=== PATIENT | female | born 1990 | race Caucasian/White ===

== ENCOUNTER 2016-05-08 19:37 | Emergency (ER) | payer MEDICAID, OTHER ==
[2016-05-08 19:42] VITALS: RESP 16
[2016-05-08] MEDS ORDERED: SODIUM CHLORIDE 0.9% 1,000 ML IV STA (20:05)
[2016-05-08] MEDS ORDERED: HYDROmorphone 1 MG/ML 1 ML SYRINGE IVP STA (20:05)
[2016-05-08 20:29] LABS: Basophils # (A) 0.1 k/uL (0-0.2); Basophils % (A) 1 %; CH 29.6; CHCM 34.1; Eosinophils # (A) 0.2 k/uL (0-0.7); Eosinophils % (A) 3 %; HCT 43.4 % (34.0-46.0); HDW 2.39; HGB 14.3 gm/dL (11.4-16.0); Luc # (Auto) 0.21; Luc % (Auto) 2; Lymphocytes # (A) 2.9 k/uL (1.0-4.8); Lymphocytes % (A) 32 %; MCH 28.6 pg (25.0-35.0); MCHC 32.9 g/dL (31.0-37.0); MCV 87.2 fL (80.0-100.0); Mean Platelet Volume 7.6; Monocytes # (A) 0.4 k/uL (0-1.0); Monocytes % (A) 4 %; Neutrophils # (A) 5.4 k/uL (1.3-7.7); Neutrophils % (A) 58 %; RBC 4.98 m/uL (3.80-5.40); RDW 12.1 % (11.5-15.5); WBC 9.2 k/uL (3.8-10.6); WBC (Perox) 9.19
[2016-05-08 20:30] LABS: Appearance,Urine Clear (Clear); Bilirubin,Urine Negative (Negative); Glucose,Urine (UA) Negative (Negative); Ketones,Urine Negative (Negative); Leukocyte Esterase,Urine Negative (Negative); Nitrite,Urine Negative (Negative); Protein,Urine Negative (Negative); Specific Gravity,Urine 1.007 (1.001-1.035); UA Billing (MACRO vs. MICRO) CHEM; Urobilinogen,Urine <2.0 mg/dL (<2.0)
--- NOTE | 2016-05-08 20:43 | XR ---
EXAMINATION TYPE: XR KUB DATE OF EXAM: 05/08/2016 8:39 PM CLINICAL HISTORY: Abdominal pain with nausea vomiting and diarrhea today TECHNIQUE: 2 upright KUB images of the abdomen are obtained. COMPARISON: Abdominal x-ray and CT abdomen pelvis February 19, 2014 FINDINGS: Scattered gas is seen in non-distended stomach and small bowel loops. Gas and fecal mater ial is seen in non-distended colon. There is no visceromegaly, pneumoperitoneum, or abnormal calcif ication appreciated. The lung bases are clear and the osseous structures are intact. IMPRESSION: Overall nonobstructive bowel gas pattern.
[2016-05-08 20:46] LABS: ALT 30 U/L (9-52); AST 30 U/L (14-36); Alkaline Phosphatase 59 U/L (38-126); Amylase 66 U/L (30-110); Anion Gap 10 mmol/L; Blood Urea Nitrogen 11 mg/dL (7-17); Calcium 9.8 mg/dL (8.4-10.2); Carbon Dioxide 29 mmol/L (22-30); Chloride 103 mmol/L (98-107); Glucose 83 mg/dL (74-99); Non-African American GFR(MDRD) >60 (>60 ml/min/1.73 sqM); Potassium 4.1 mmol/L (3.5-5.1); Sodium 142 mmol/L (137-145); Total Bilirubin 0.5 mg/dL (0.2-1.3); Total Protein 8.4 g/dL (6.3-8.2)
--- NOTE | 2016-05-08 20:56 | ED ---
Abdominal Pain HPI - General Chief Complaint: Abdominal Pain Stated Complaint: Abdominal Pain/NVD Time Seen by Provider: 05/08/16 19:45 Source: patient, RN notes reviewed Mode of arrival: ambulatory Limitations: no limitations - History of Present Illness Initial Comments: Patient is a 25-year-old female with history of cold ulcerative colitis presenting to the emergency department with chief complaint of lower abdominal pain, diarrhea and one episode of vomiting for approximately 2 days. She reports that anytime she eats she gets a severe abdominal pain. She reports that she's had no problems with urination. She states that she does not take any medications to manage her ulcerative colitis and she has not had a flare in many years. Patient reports she's noticed no blood in her stools. She states that she has worsening pain when laying down on her abdomen or any pressure is applied for abdomen. She was seen at urgent care and they instructed her to come to the emergency department. She states that at the urgent care they did do a urine analysis. She states she's had no fever or chills, headache, chest pain, shortness of breath. - Related Data Home Medications Medication Instructions Recorded Confirmed Nkyeske-Zjyt-Koip [id number] 2 tab PO QID PRN 05/08/16 05/08/16 [Excedrin] Previous Rx's Medication Instructions Recorded Acetaminophen-Codeine 300-30mg 1 tab PO Q4H PRN #12 tablet 05/08/16 [Tylenol #3] Bismuth Subsalicylate 5 ml PO TID #1 bottle 05/08/16 [Pepto-Bismol] predniSONE 50 mg PO DAILY #5 tab 05/08/16 Allergies Allergy/AdvReac Type Severity Reaction Status Date / Time No Known Allergies Allergy Verified 05/08/16 19:48 Review of Systems ROS Statement: Those systems with pertinent positive or pertinent negative responses have been documented in the HPI. ROS Other: All systems not noted in ROS Statement are negative. Past Medical History Additional Past Medical History / Comment(s): UTIs, back pain, colitis History of Any Multi-Drug Resistant Organisms: None Reported Past Surgical History: No Surgical Hx Reported Past Psychological History: No Psychological Hx Reported Smoking Status: Never smoker Past Alcohol Use History: Occasional Past Drug Use History: None Reported General Exam - General Exam Comments Initial Comments: is a pleasant 25-year-old female. She does not appear to be in any acute distress. Limitations: no limitations General appearance: alert Head exam: Present: atraumatic, normocephalic, normal inspection Eye exam: Present: normal appearance, PERRL, EOMI. Absent: scleral icterus, conjunctival injection, periorbital swelling ENT exam: Present: normal exam, mucous membranes moist Neck exam: Present: normal inspection. Absent: tenderness, meningismus, lymphadenopathy Respiratory exam: Present: normal lung sounds bilaterally. Absent: respiratory distress, wheezes, rales, rhonchi, stridor Cardiovascular Exam: Present: regular rate, normal rhythm, normal heart sounds. Absent: systolic murmur, diastolic murmur, rubs, gallop, clicks GI/Abdominal exam: Present: soft, tenderness (Patient has significant left lower quadrant and right lower quadrant tenderness.), normal bowel sounds. Absent: distended, guarding, rebound, rigid Rectal exam: Present: normal inspection, normal rectal tone Extremities exam: Present: normal inspection, full ROM, normal capillary refill. Absent: tenderness, pedal edema, joint swelling, calf tenderness Back exam: Present: normal inspection Neurological exam: Present: alert, oriented X3, CN II-XII intact Psychiatric exam: Present: normal affect, normal mood Skin exam: Present: warm, dry, intact, normal color. Absent: rash Course Vital Signs 05/08/16 05/08/16 05/09/16 19:40 21:42 00:20 Temperature 98.9 F 97.9 F Pulse Rate 80 77 68 Respiratory 16 16 16 Rate Blood Pressure 130/72 111/59 122/76 O2 Sat by Pulse 99 100 98 Oximetry Medical Decision Making - Medical Decision Making Patient is a 25-year-old female with history of cold ulcerative colitis presenting to the emergency department with chief complaint of lower abdominal pain, diarrhea and one episode of vomiting for approximately 2 days. She reports that anytime she eats she gets a severe abdominal pain. She reports that she's had no problems with urination. She states that she does not take any medications to manage her ulcerative colitis and she has not had a flare in many years. Patient reports she's noticed no blood in her stools. She states that she has worsening pain when laying down on her abdomen or any pressure is applied for abdomen. She was seen at urgent care and they instructed her to come to the emergency department. Labs were reviewed and are negative for any acute process. Given history of UC, and her tenderness CT abdomen and pelvis with contrast obtained. Evidence of possible rupture ovarian cyst on the left. Patient will be given pain medicaion, steroids for mild colitis exacerbation. Patient also advised to take peptobismol. Patient given PCP information and advised to follow up in one to two days. - Lab Data Result diagrams: 05/08/16 20:22 05/08/16 20:22 Lab Results 05/08/16 05/08/16 05/08/16 Range/Units 20:22 20:22 20:22 WBC 9.2 (3.8-10.6) k/uL RBC 4.98 (3.80-5.40) m/uL Hgb 14.3 (11.4-16.0) gm/dL Hct 43.4 (34.0-46.0) % MCV 87.2 (80.0-100.0) fL MCH 28.6 (25.0-35.0) pg MCHC 32.9 (31.0-37.0) g/dL RDW 12.1 (11.5-15.5) % Plt Count 281 (150-450) k/uL Neutrophils % 58 % Lymphocytes % 32 % Monocytes % 4 % Eosinophils % 3 % Basophils % 1 % Neutrophils # 5.4 (1.3-7.7) k/uL Lymphocytes # 2.9 (1.0-4.8) k/uL Monocytes # 0.4 (0-1.0) k/uL Eosinophils # 0.2 (0-0.7) k/uL Basophils # 0.1 (0-0.2) k/uL Sodium 142 (137-145) mmol/L Potassium 4.1 (3.5-5.1) mmol/L Chloride 103 (98-107) mmol/L Carbon Dioxide 29 (22-30) mmol/L Anion Gap 10 mmol/L BUN 11 (7-17) mg/dL Creatinine 0.60 (0.52-1.04) mg/dL Est GFR (MDRD) Af Amer >60 (>60 ml/min/1.73 sqM) Est GFR (MDRD) Non-Af >60 (>60 ml/min/1.73 sqM) Glucose 83 (74-99) mg/dL Calcium 9.8 (8.4-10.2) mg/dL Total Bilirubin 0.5 (0.2-1.3) mg/dL AST 30 (14-36) U/L ALT 30 (9-52) U/L Alkaline Phosphatase 59 (38-126) U/L Total Protein 8.4 H (6.3-8.2) g/dL Albumin 4.7 (3.5-5.0) g/dL Amylase 66 (30-110) U/L Lipase 44 (23-300) U/L Urine Color Light Yellow Urine Appearance Clear (Clear) Urine pH 6.0 (5.0-8.0) Ur Specific [place] 1.007 (1.001-1.035) Urine Protein Negative (Negative) Urine Glucose (UA) Negative (Negative) Urine Ketones Negative (Negative) Urine Blood Negative (Negative) Urine Nitrate Negative (Negative) Urine Bilirubin Negative (Negative) Urine Urobilinogen <2.0 (<2.0) mg/dL Ur Leukocyte Esterase Negative (Negative) Urine HCG, Qual (Not Detectd) Stool Occult Blood (Negative) 05/08/16 05/08/16 Range/Units 20:22 20:56 WBC (3.8-10.6) k/uL RBC (3.80-5.40) m/uL Hgb (11.4-16.0) gm/dL Hct (34.0-46.0) % MCV (80.0-100.0) fL MCH (25.0-35.0) pg MCHC (31.0-37.0) g/dL RDW (11.5-15.5) % Plt Count (150-450) k/uL Neutrophils % % Lymphocytes % % Monocytes % % Eosinophils % % Basophils % % Neutrophils # (1.3-7.7) k/uL Lymphocytes # (1.0-4.8) k/uL Monocytes # (0-1.0) k/uL Eosinophils # (0-0.7) k/uL Basophils # (0-0.2) k/uL Sodium (137-145) mmol/L Potassium (3.5-5.1) mmol/L Chloride (98-107) mmol/L Carbon Dioxide (22-30) mmol/L Anion Gap mmol/L BUN (7-17) mg/dL Creatinine (0.52-1.04) mg/dL Est GFR (MDRD) Af Amer (>60 ml/min/1.73 sqM) Est GFR (MDRD) Non-Af (>60 ml/min/1.73 sqM) Glucose (74-99) mg/dL Calcium (8.4-10.2) mg/dL Total Bilirubin (0.2-1.3) mg/dL AST (14-36) U/L ALT (9-52) U/L Alkaline Phosphatase (38-126) U/L Total Protein (6.3-8.2) g/dL Albumin (3.5-5.0) g/dL Amylase (30-110) U/L Lipase (23-300) U/L Urine Color Urine Appearance (Clear) Urine pH (5.0-8.0) Ur Specific [place] (1.001-1.035) Urine Protein (Negative) Urine Glucose (UA) (Negative) Urine Ketones (Negative) Urine Blood (Negative) Urine Nitrate (Negative) Urine Bilirubin (Negative) Urine Urobilinogen (<2.0) mg/dL Ur Leukocyte Esterase (Negative) Urine HCG, Qual Not Detected (Not Detectd) Stool Occult Blood Negative (Negative) - Radiology Data Radiology results: report reviewed Left slightly larger than right ovarian cyst with trace amounts of fluid in the adjacent left adnexa. Perhaps basis of a partial cyst rupture. Follow-up ultrasound exam could be obtained within 6-8 weeks to reevaluate including to ensure clearing. Small stones in the right upper and mid kidney without secondary signs of urinary tract obstruction. Disposition Clinical Impression: Ovarian cyst, Diarrhea, History of ulcerative colitis Disposition: HOME SELF-CARE Condition: Good Instructions: Ovarian Cyst (ED), Gastroenteritis (ED) Additional Instructions: Patient advised to rest, remain hydrated and follow-up with primary care provider. Continue to complete the stair prescription and take Pepto-Bismol as directed. Patient also advised to use the pain medication for pain. Return to the emergency department if any alarming signs or symptoms occur. Prescriptions: Acetaminophen-Codeine 300-30mg [Tylenol #3] 1 tab PO Q4H PRN #12 tablet PRN Reason: Pain Bismuth Subsalicylate [Pepto-Bismol] 5 ml PO TID #1 bottle predniSONE 50 mg PO DAILY #5 tab Referrals: Maria Esther Bridges MD [STAFF PHYSICIAN] - 1-2 days Siria Camp MD [STAFF PHYSICIAN] - 1-2 days Time of Disposition: 23:39
[2016-05-08] MEDS: RX INFO: IV CONTRAST WAS GIVEN 1 EACH MISC MISCELLANE PRN ×2 (22:44→23:14)
--- NOTE | 2016-05-08 23:29 | CT ---
EXAM: CT Abdomen and Pelvis With Intravenous Contrast. CLINICAL HISTORY: Reason: pain TECHNIQUE: Axial computed tomography images of the abdomen and pelvis with intravenous contrast. CTDI is 34.80 mGy and DLP is 1378.90 mGy-cm COMPARISON: 02/19/[address] FINDINGS: Lower thorax: No acute findings. ABDOMEN: Liver: There is again generalized hepatic steatosis present. Gallbladder and bile ducts: Unremarkable. No calcified stones. No ductal dilation. Pancreas: Unremarkable. No ductal dilation. No mass. Spleen: Unremarkable. No splenomegaly. Adrenals: Unremarkable. No mass. Kidneys and ureters: 2 tiny stones, each on the order of 2-3 mm, are present in the right upper and mid kidney. The left kidney is uniform. No hydronephrosis, ureter stone or hydroureter. PELVIS: Bladder: Unremarkable. No mass. Reproductive: Both ovaries are mildly enlarged, each appears to contain a cyst within it is slightly larger on the left where it measures 3.6 x 2.8 cm, that on the right where it measures 3.4 x 2.0 cm. Appendix: No findings to suggest acute appendicitis. ABDOMEN + PELVIS: Stomach and bowel: Unremarkable. No obstruction. No mucosal thickening. Peritoneum: There is a trace amount of free fluid anterior to the left ovary. Lymph nodes: Unremarkable. No enlarged lymph nodes. Vasculature: Unremarkable. No aortic aneurysm. Bones: No acute fracture. IMPRESSION: 1. Left slightly larger than right ovarian cyst with trace amount of fluid in the adjacent left adnexa, perhaps on the basis of partial cyst rupture. Follow-up ultrasound exam could be obtained within 6-8 weeks to reevaluate including to ensure clearing. 2. Small stones in the right upper and mid kidney without secondary signs of urinary tract obstruction.
[2016-05-08] MEDS ORDERED: ACET/COD 300 MG/30 MG STARTER PACK 6 TAB BTL PO STA (23:57)
[2016-05-09 00:21] VITALS: BP 122/76; PULSE 68; TEMP 97.9
== END 2016-05-09 00:23 | disposition home or self-care (01) ==
LOC: EC 19:37
DX: N83.202 Unspecified ovarian cyst, left side (principal); N83.201 Unspecified ovarian cyst, right side; R19.7 Diarrhea, unspecified; Z87.19 Personal history of other diseases of the digestive system
CPT/HCPCS: 36415; 80053; 82150; 83690; 85025; 82272; 81003; 81025; 74000; 74177; 99284; 96374; 96361 ×4; J1170; Q9967

== ENCOUNTER → 2016-06-29 | Outpatient (CLI) | payer MEDICAID ==
--- NOTE | 2016-06-29 10:26 | US ---
EXAMINATION TYPE: US transvaginal DATE OF EXAM: 06/29/2016 8:40 AM COMPARISON: 02/25/2015 CLINICAL HISTORY: 25-year-old female with previous Ovarian Cyst N83.209. Date of LMP: 05/07/16 TECHNIQUE: Multiple transvaginal sonographic images of the pelvis were obtained. Findings: Uterus: Anteverted measuring 7.5 x 3.6 x 4.5 cm. Cervical nabothian cysts are present. Endometrial Stripe: 1.1 cm. There are a few tiny 3 mm cystic locules along the endometrium and in the adjacent junctional zone. Right Ovary: 4.1 x 2.3 x 2.5 cm for a volume of 12.3 mL. Left Ovary: 4.2 x 2.5 x 2.8 cm for a volume of 15.4 mL. There are numerous small peripheral follicles in both ovaries. No evident adnexal abnormality or cul-de-sac free fluid. IMPRESSION: 1. A few tiny cystic locules measuring 3 mm along the endometrium and possibly in the adjacent juncti onal zone. Findings could reflect impending menstruation. Correlate to ensure a negative st atus. Adenomyosis can sometimes demonstrate myometrial cysts. Clinically correlate. 2. Numerous small peripherally oriented follicles within the ovaries. Clinical correlation can be mad e to exclude polycystic ovaries.
[2016-06-29 11:37] LABS: Follicle Stimulating Hormone 4.8 mIU/mL; Prolactin 24.7 ng/mL (3.0-18.6)
[2016-06-29 15:08] LABS: DHEA Sulfate 186.5 ug/dL (26.0-430.0)
== END | disposition home or self-care (01) ==
LOC: RADUSWWP 08:16
PROVIDERS: ATTEND Obstetrics & Gynecology
DX: N85.8 Other specified noninflammatory disorders of uterus (principal); N91.2 Amenorrhea, unspecified
CPT/HCPCS: 36415; 76830; 80061; 82627; 82947; 83001; 83002; 83525; 84146; 84443

== ENCOUNTER 2016-07-04 09:24 | Day surgery (SDC) | payer MEDICAID ==
[~2016-07-04 09:24] MED LIST: LACTATED RINGERS 1,000 ML IV SCH
[2016-07-04 09:46] VITALS: RESP 16; TEMP 98.6
[2016-07-04] MEDS ORDERED: LIDOCAINE 1% 20 ML VIAL (10MG/ML) FOR IV START INTRADERMA ONE (09:55)
[2016-07-04] MEDS ORDERED: LIDOCAINE 1% INJ 10MG/ML (20 ML MDV) ONE (10:30)
[2016-07-04] MEDS ORDERED: PROPOFOL 10 MG/ML 20 ML VIAL IV ONE (10:30)
--- NOTE | 2016-07-04 11:03 | P.PCN ---
Date of Procedure: 07/04/16 Procedure(s) Performed: Procedures: 1. Esophagogastroduodenoscopy and biopsy. 2. Colonoscopy and biopsy. Preoperative diagnosis: Abdominal pain, nausea, vomiting and change in bowel habits.. Postoperative diagnosis: 1. Small sliding hiatal hernia with no obvious esophagitis or complicated reflux disease. 2. Mild antral gastritis. 3. Normal colon and terminal ileum. Preparation: HalfLytely prep. Sedation: Was provided by anesthesia. Brief clinical history: The patient is a 25-year-old female who was evaluated in the office last month for recurrent nausea and vomiting and abdominal pain for the last couple years and intermittent diarrhea for the last 5 years. The patient was on omeprazole and was told in the past that she had colitis. This evaluation is to assess for inflammatory bowel disease, peptic ulcer disease or other pathology. Procedure: With the patient on her left lateral decubitus position and after informed consent and adequate sedation, I passed the Olympus-GIF 160 video upper endoscope through the cricopharyngeus down the esophagus. GE junction was around 36 cm from the incisors and there was a small sliding hiatal hernia. The endoscope was then passed into the stomach which was insufflated with air and inspected in detail including the retroflex view in the cardia. Finally, the endoscope was passed through the pylorus into the duodenum. Pyloric channel did not show any ulcers. Duodenal bulb, post bulbar area and descending duodenum showed minimal erythema, otherwise, appeared essentially within normal limits. The antrum showed some mottling and erythema but there were no ulcers or erosions. The esophagus did not show any erosions, ulcers, strictures or Mccann's esophagus. I obtained biopsies from the duodenum, antrum and esophagus then the endoscope was withdrawn and I proceeded with the colonoscopy. Perianal area did not show any fissures or fistulas. There were no masses felt on digital rectal examination. The Olympus CFQ 160L video colonoscope was then inserted in the rectum in the usual fashion and advanced to the cecum. I intubated the ileocecal valve and examined the terminal ileum. Terminal ileum and colon appeared healthy with no edema, erythema, ulceration, exudation or spontaneous bleeding. No obvious diverticular disease or any polyps were seen. I obtained biopsies from the terminal ileum and right colon then I retroflexed endoscope in the rectum before the endoscope was withdrawn. The patient tolerated the procedure well. Plan: The patient was reassured. Will await pathology results. She will follow -up in the office later this month and would keep you updated on her progress. She will follow-up with you as planned.
[2016-07-04 11:25] VITALS: BP 118/75; PULSE 72
== END 2016-07-04 11:38 | disposition home or self-care (01) ==
LOC: ORWHC2ENDO 09:24
DX: K29.50 Unspecified chronic gastritis without bleeding (principal); R19.7 Diarrhea, unspecified; K21.0 Gastro-esophageal reflux disease with esophagitis; R11.2 Nausea with vomiting, unspecified; K44.9 Diaphragmatic hernia without obstruction or gangrene; Z79.899 Other long term (current) drug therapy
CPT/HCPCS: 81025; 88305; 88342; 45380; 43239; J2001; J2704

== ENCOUNTER → 2016-07-08 | Outpatient (CLI) | payer MEDICAID | END | disposition home or self-care (01) | LOC: LABWHC1 10:11 | PROVIDERS: ATTEND Obstetrics & Gynecology | DX: R94.6 Abnormal results of thyroid function studies (principal) | CPT/HCPCS: 36415; 84432; 84439; 84481; 86376 ==

== ENCOUNTER 2016-07-30 00:29 | Emergency (ER) | payer MEDICAID ==
[2016-07-30 00:39] VITALS: BP 143/78; PULSE 80; RESP 16; TEMP 98
--- NOTE | 2016-07-30 01:04 | ED ---
Lower Extremity Injury HPI - General Chief Complaint: Extremity Injury, Lower Stated Complaint: knee pain Time Seen by Provider: 07/30/16 00:40 Source: patient, RN notes reviewed Mode of arrival: ambulatory Limitations: no limitations - History of Present Illness Initial Comments: This is a pleasant 25-year-old female presents emergency department complaining of right leg. Patient states that she thought she was having a charley horse yesterday and felt pain behind her right knee and in the posterior/distal aspect of her right eye. She states that the area was sore throughout the day today. She states feeling had what she felt was another charley horse. She is complaining of some pain to the same area. 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 Patient denies any pain distal to the knee. She denies any hip pain. There is no foot pain. No numbness or tingling. Patient is able ambulate with increased pain. Patient does have a family history of DVT. Patient also started hormone pills about one month ago. Patient denies any shortness breath or chest pain. No chance of . Patient states she is on her menses currently. Patient denies any direct trauma. No fever or chills. No headache or dizziness. No change in vision or hearing. No nausea or vomiting. No change in bowel movements or urination. - Related Data Home Medications Medication Instructions Recorded Confirmed Omeprazole 40 mg PO QAM 07/01/16 07/04/16 Previous Rx's Medication Instructions Recorded Naproxen 375 mg PO BID PRN #20 tablet. 07/30/16 Allergies Allergy/AdvReac Type Severity Reaction Status Date / Time No Known Allergies Allergy Verified 07/04/16 09:47 Review of Systems ROS Statement: Those systems with pertinent positive or pertinent negative responses have been documented in the HPI. ROS Other: All systems not noted in ROS Statement are negative. Past Medical History Additional Past Medical History / Comment(s): UTIs, back pain, colitis History of Any Multi-Drug Resistant Organisms: None Reported Past Surgical History: No Surgical Hx Reported Past Psychological History: No Psychological Hx Reported Smoking Status: Never smoker Past Alcohol Use History: Occasional Past Drug Use History: None Reported General Exam - General Exam Comments Initial Comments: Well-developed, well-nourished 25-year-old female in no distress Limitations: no limitations General appearance: alert, in no apparent distress Head exam: Present: atraumatic, normocephalic, normal inspection Eye exam: Present: normal appearance, PERRL, EOMI. Absent: scleral icterus, conjunctival injection, periorbital swelling ENT exam: Present: normal exam, mucous membranes moist Neck exam: Present: normal inspection. Absent: tenderness, meningismus, lymphadenopathy Respiratory exam: Present: normal lung sounds bilaterally. Absent: respiratory distress, wheezes, rales, rhonchi, stridor Cardiovascular Exam: Present: regular rate, normal rhythm, normal heart sounds. Absent: systolic murmur, diastolic murmur, rubs, gallop, clicks GI/Abdominal exam: Present: soft, normal bowel sounds. Absent: distended, tenderness, guarding, rebound, rigid Extremities exam: Present: normal inspection, full ROM, tenderness (Patient has mild tenderness to the right popliteal space. However, there is no palpable cord, no evidence of erythema, no evidence of crepitus or deformity, no bruising or varicosity.), normal capillary refill. Absent: pedal edema, joint swelling, calf tenderness Back exam: Present: normal inspection Neurological exam: Present: alert, oriented X3, CN II-XII intact Psychiatric exam: Present: normal affect, normal mood Skin exam: Present: warm, dry, intact, normal color. Absent: rash Course Vital Signs 07/30/16 00:36 Temperature 98 F Pulse Rate 80 Respiratory 16 Rate Blood Pressure 143/78 O2 Sat by Pulse 99 Oximetry Medical Decision Making - Medical Decision Making Patient will be for whole-heartedly endorsed to Dr. Mireles for further evaluation and disposition. Case was discussed in detail with the accepting physician. Neg. doppler study. Pt. likely has muscle strain from muscle cramping. Disposition Clinical Impression: Muscle strain of right thigh Disposition: HOME SELF-CARE Condition: Good Instructions: Muscle Strain (ED) Additional Instructions: follow up with your PCP as directed. Return to the ED prn if worse. Prescriptions: Naproxen 375 mg PO BID PRN #20 tablet.dr LOVE Reason: Pain Referrals: Maria Esther Bridges MD [Primary Care Provider] - 1-2 days Time of Disposition: 01:24
--- NOTE | 2016-07-30 01:16 | US ---
EXAM: US Duplex Right Lower Extremity Veins CLINICAL HISTORY: Right knee pain. TECHNIQUE: Real-time ultrasound scan of the veins of the right lower extremity with color Doppler flow, spectral waveform analysis and compression. COMPARISON: No relevant prior studies available. FINDINGS: Deep veins: No deep venous thrombosis in the common femoral, femoral, proximal deep femoral or popliteal veins. The veins are compressible with normal color flow and augmentation. Superficial veins: No thrombus in the visualized greater saphenous vein. IMPRESSION: No evidence of right lower extremity deep venous thrombosis.
== END 2016-07-30 02:15 | disposition home or self-care (01) ==
LOC: EC 00:29
DX: S76.911A Strain of unspecified muscles, fascia and tendons at thigh level, right thigh, initial encounter (principal); Z79.899 Other long term (current) drug therapy; X58.XXXA Exposure to other specified factors, initial encounter
CPT/HCPCS: 81025; 99283

== ENCOUNTER 2016-09-22 15:55 | Emergency (ER) | payer MEDICAID ==
[2016-09-22] MEDS ORDERED: ONDANSETRON 4 MG/2 ML VIAL IVP STA (16:31)
[2016-09-22] MEDS ORDERED: SODIUM CHLORIDE 0.9% 1,000 ML IV STA (16:31)
--- NOTE | 2016-09-22 16:33 | ED ---
General Adult HPI - General Chief complaint: Abdominal Pain Stated complaint: Abd Pain Time Seen by Provider: 09/22/16 16:25 Source: patient, RN notes reviewed Mode of arrival: ambulatory Limitations: no limitations - History of Present Illness Initial comments: Patient 25-year-old female who presents emergency room today with chief complaint of left-sided flank pain that began approximately 3 hours ago. Patient does admit that the sharp type pain locally to the left side. She does admit that she went to urgent care. She states that she had some symptoms of nausea vomiting as well. She admits that she's been told that she's had kidney stones in the past. She states she's never past one. She states urgent care was concerned that she may be passing a kidney stone advised come here to the emergency room. Patient denies any other complaints or symptoms at this time. Currently rates pain 4/10 systems given Toradol at urgent care. Patient does admit that she's currently on her menstrual cycle. Patient denies any recent fever, chills, shortness of breath, chest pain, numbness or tingling, dysuria or hematuria, constipation or diarrhea, headaches or visual changes, or any other complaints. - Related Data Home Medications Medication Instructions Recorded Confirmed Dicyclomine [Bentyl] 10 mg PO TID PRN 09/22/16 09/22/16 Medroxyprogesterone Acetate 10 mg PO DIRECTED 09/22/16 09/22/16 [Provera] Naproxen Sodium [Midol] 220 mg PO Q12HR PRN 09/22/16 09/22/16 metFORMIN HCL [Glucophage] 500 mg PO TID 09/22/16 09/22/16 Previous Rx's Medication Instructions Recorded Ibuprofen [Motrin] 600 mg PO Q6HR PRN #40 day 09/22/16 Ondansetron Odt [Zofran ODT] 4 mg PO Q8HR PRN #20 tab 09/22/16 Allergies Allergy/AdvReac Type Severity Reaction Status Date / Time No Known Allergies Allergy Verified 09/22/16 16:24 Review of Systems ROS Statement: Those systems with pertinent positive or pertinent negative responses have been documented in the HPI. ROS Other: All systems not noted in ROS Statement are negative. Past Medical History Additional Past Medical History / Comment(s): UTIs, back pain, colitis, kindey stones History of Any Multi-Drug Resistant Organisms: None Reported Past Surgical History: No Surgical Hx Reported Past Psychological History: No Psychological Hx Reported Smoking Status: Never smoker Past Alcohol Use History: Occasional Past Drug Use History: None Reported General Exam - General Exam Comments Initial Comments: General: The patient is awake and alert, in mild discomfort. Eye: Pupils are equal, round and reactive to light, extra-ocular movements are intact. No nystagmus. There is normal conjunctiva bilaterally. No signs of icterus. Ears, nose, mouth and throat: There are moist mucous membranes and no oral lesions. Neck: The neck is supple, there is no tenderness or JVD. Cardiovascular: There is a regular rate and rhythm. No murmur, rub or gallop is appreciated. Respiratory: Lungs are clear to auscultation, respirations are non-labored, breath sounds are equal. No wheezes, stridor, rales, or rhonchi. Gastrointestinal: Normal appearance and. Normal bowel sounds. Soft on palpation. Patient does have mild tenderness to the right. Mild tenderness suprapubic. No rebound tenderness. No guarding. Musculoskeletal: Normal ROM, no tenderness. Strength 5/5. Sensation intact. Pulses equal bilaterally 2+. Neurological: A&O x 3. CN II-XII intact, There are no obvious motor or sensory deficits. Coordination appears grossly intact. Speech is normal. Skin: Skin is warm and dry and no rashes or lesions are noted. Psychiatric: Cooperative, appropriate mood & affect, normal judgment. Limitations: no limitations Course Vital Signs 09/22/16 09/22/16 16:14 19:12 Temperature 98.6 F 98.2 F Pulse Rate 68 67 Respiratory 17 20 Rate Blood Pressure 133/67 134/69 O2 Sat by Pulse 98 99 Oximetry Medical Decision Making - Medical Decision Making Labs been reviewed. Blood work unremarkable. Urinalysis does show large amount of blood. She is currently on her menstrual cycle. Patient does admit to having a history of kidney stones but is never passed one. She states she knows of her up in the kidney. CT ordered which does show nephrolithiasis. No other abnormalities. Ultrasound obtained to rule out ovarian torsion. No evidence for ovarian torsion no other abnormalities appreciated. Patient resting comfortably in stretcher. Patient is advised close follow-up family doctor over the next 1-2 days. Also discussed about menorrhagia. Advised to follow-up or return here to the emergency room symptoms increase or worsen. Patient will be continued on anti-inflammatories and Tylenol for pain. - Lab Data Result diagrams: 09/22/16 16:45 09/22/16 16:45 Lab Results 09/22/16 09/22/16 09/22/16 Range/Units 16:45 16:45 16:45 WBC 10.4 (3.8-10.6) k/uL RBC 4.27 (3.80-5.40) m/uL Hgb 12.3 (11.4-16.0) gm/dL Hct 35.9 (34.0-46.0) % MCV 83.9 (80.0-100.0) fL MCH 28.9 (25.0-35.0) pg MCHC 34.4 (31.0-37.0) g/dL RDW 12.1 (11.5-15.5) % Plt Count 313 (150-450) k/uL Neutrophils % 65 % Lymphocytes % 26 % Monocytes % 5 % Eosinophils % 2 % Basophils % 0 % Neutrophils # 6.7 (1.3-7.7) k/uL Lymphocytes # 2.7 (1.0-4.8) k/uL Monocytes # 0.6 (0-1.0) k/uL Eosinophils # 0.2 (0-0.7) k/uL Basophils # 0.0 (0-0.2) k/uL Sodium 141 (137-145) mmol/L Potassium 4.4 (3.5-5.1) mmol/L Chloride 106 (98-107) mmol/L Carbon Dioxide 27 (22-30) mmol/L Anion Gap 8 mmol/L BUN 13 (7-17) mg/dL Creatinine 0.63 (0.52-1.04) mg/dL Est GFR (MDRD) Af Amer >60 (>60 ml/min/1.73 sqM) Est GFR (MDRD) Non-Af >60 (>60 ml/min/1.73 sqM) Glucose 89 (74-99) mg/dL Calcium 9.2 (8.4-10.2) mg/dL Total Bilirubin 0.2 (0.2-1.3) mg/dL AST 27 (14-36) U/L ALT 26 (9-52) U/L Alkaline Phosphatase 50 (38-126) U/L Total Protein 7.3 (6.3-8.2) g/dL Albumin 4.3 (3.5-5.0) g/dL Amylase 53 (30-110) U/L Lipase 38 (23-300) U/L Urine Color Urine Appearance (Clear) Urine pH (5.0-8.0) Ur Specific Ambrose (1.001-1.035) Urine Protein (Negative) Urine Glucose (UA) (Negative) Urine Ketones (Negative) Urine Blood (Negative) Urine Nitrite (Negative) Urine Bilirubin (Negative) Urine Urobilinogen (<2.0) mg/dL Ur Leukocyte Esterase (Negative) Urine RBC (0-5) /hpf Urine WBC (0-5) /hpf Ur Squamous Epith Cells (0-4) /hpf Urine Bacteria (None) /hpf Urine HCG, Qual Not Detected (Not Detectd) 09/22/16 Range/Units 16:45 WBC (3.8-10.6) k/uL RBC (3.80-5.40) m/uL Hgb (11.4-16.0) gm/dL Hct (34.0-46.0) % MCV (80.0-100.0) fL MCH (25.0-35.0) pg MCHC (31.0-37.0) g/dL RDW (11.5-15.5) % Plt Count (150-450) k/uL Neutrophils % % Lymphocytes % % Monocytes % % Eosinophils % % Basophils % % Neutrophils # (1.3-7.7) k/uL Lymphocytes # (1.0-4.8) k/uL Monocytes # (0-1.0) k/uL Eosinophils # (0-0.7) k/uL Basophils # (0-0.2) k/uL Sodium (137-145) mmol/L Potassium (3.5-5.1) mmol/L Chloride (98-107) mmol/L Carbon Dioxide (22-30) mmol/L Anion Gap mmol/L BUN (7-17) mg/dL Creatinine (0.52-1.04) mg/dL Est GFR (MDRD) Af Amer (>60 ml/min/1.73 sqM) Est GFR (MDRD) Non-Af (>60 ml/min/1.73 sqM) Glucose (74-99) mg/dL Calcium (8.4-10.2) mg/dL Total Bilirubin (0.2-1.3) mg/dL AST (14-36) U/L ALT (9-52) U/L Alkaline Phosphatase (38-126) U/L Total Protein (6.3-8.2) g/dL Albumin (3.5-5.0) g/dL Amylase (30-110) U/L Lipase (23-300) U/L Urine Color Yellow Urine Appearance Clear (Clear) Urine pH 8.5 H (5.0-8.0) Ur Specific Ambrose 1.019 (1.001-1.035) Urine Protein Trace H (Negative) Urine Glucose (UA) Negative (Negative) Urine Ketones Negative (Negative) Urine Blood Moderate H (Negative) Urine Nitrite Negative (Negative) Urine Bilirubin Negative (Negative) Urine Urobilinogen <2.0 (<2.0) mg/dL Ur Leukocyte Esterase Negative (Negative) Urine RBC >182 H (0-5) /hpf Urine WBC 3 (0-5) /hpf Ur Squamous Epith Cells 1 (0-4) /hpf Urine Bacteria Rare H (None) /hpf Urine HCG, Qual (Not Detectd) Disposition Clinical Impression: Abdominal pain Disposition: TRANSFER TO PSYCH HOSP/UNIT Condition: Good Instructions: Abdominal Pain (ED) Additional Instructions: Please use medication as discussed. Please follow-up with family doctor in the next 2 days of symptoms have not improved. Please return to emergency room if the symptoms increase or worsen or for any other concerns. Prescriptions: Ibuprofen [Motrin] 600 mg PO Q6HR PRN #40 day PRN Reason: Pain Ondansetron Odt [Zofran ODT] 4 mg PO Q8HR PRN #20 tab PRN Reason: Nausea Referrals: Maria Esther Bridges MD [Primary Care Provider] - 1-2 days Time of Disposition: 19:40
[2016-09-22 17:05] LABS: Basophils % (A) 0 %; CH 27.9; CHCM 33.4; Eosinophils # (A) 0.2 k/uL (0-0.7); Eosinophils % (A) 2 %; HCT 35.9 % (34.0-46.0); HDW 2.73; HGB 12.3 gm/dL (11.4-16.0); Luc # (Auto) 0.17; Luc % (Auto) 2; Lymphocytes # (A) 2.7 k/uL (1.0-4.8); Lymphocytes % (A) 26 %; MCH 28.9 pg (25.0-35.0); MCHC 34.4 g/dL (31.0-37.0); MCV 83.9 fL (80.0-100.0); Monocytes # (A) 0.6 k/uL (0-1.0); Monocytes % (A) 5 %; Neutrophils # (A) 6.7 k/uL (1.3-7.7); Neutrophils % (A) 65 %; RBC 4.27 m/uL (3.80-5.40); RDW 12.1 % (11.5-15.5); WBC 10.4 k/uL (3.8-10.6); WBC (Perox) 10.62
[2016-09-22 17:08] LABS: Appearance,Urine Clear (Clear); Bacteria,Urine Rare /hpf; Bilirubin,Urine Negative (Negative); Glucose,Urine (UA) Negative (Negative); Ketones,Urine Negative (Negative); Leukocyte Esterase,Urine Negative (Negative); Nitrite,Urine Negative (Negative); PH, Urine 8.5 (5.0-8.0); Particle Count 3795; Protein,Urine Trace (Negative); RBC,Urine >182 /hpf (0-5); Specific Gravity,Urine 1.019 (1.001-1.035); Squamous Epithelial Cell,Urine 1 /hpf (0-4); UA Billing (MACRO vs. MICRO) MICRO; Urobilinogen,Urine <2.0 mg/dL (<2.0); WBC,Urine 3 /hpf (0-5)
[2016-09-22 17:16] LABS: ALT 26 U/L (9-52); AST 27 U/L (14-36); Alkaline Phosphatase 50 U/L (38-126); Amylase 53 U/L (30-110); Anion Gap 8 mmol/L; Blood Urea Nitrogen 13 mg/dL (7-17); Calcium 9.2 mg/dL (8.4-10.2); Carbon Dioxide 27 mmol/L (22-30); Chloride 106 mmol/L (98-107); Glucose 89 mg/dL (74-99); Non-African American GFR(MDRD) >60 (>60 ml/min/1.73 sqM); Potassium 4.4 mmol/L (3.5-5.1); Sodium 141 mmol/L (137-145); Total Bilirubin 0.2 mg/dL (0.2-1.3); Total Protein 7.3 g/dL (6.3-8.2)
--- NOTE | 2016-09-22 17:19 | XR ---
Abdomen HISTORY: Pain Frontal view of the abdomen on 2 images correlated to prior abdomen and CT abdomen 05/08/2016 There is no interval change. Lung bases are clear. There is a slight spinal curvature. No bowel obstr uction or pneumoperitoneum. IMPRESSION: Stable exam, no acute abnormality is evident. Previously identified renal calcification i s not seen
--- NOTE | 2016-09-22 18:08 | CT ---
EXAMINATION TYPE: CT abdomen pelvis wo con DATE OF EXAM: 09/22/2016 COMPARISON: Prior CT abdomen pelvis 05/08/2016 HISTORY: Mid abdominal pain with nausea and vomiting today. CT DLP: 972.20 mGycm Automated exposure control for dose reduction was used. TECHNIQUE: Helical acquisition of images from the lung bases through the pelvis. FINDINGS: LUNG BASES: No significant abnormality is appreciated. AORTA: No significant abnormality is appreciated. LIVER/GB: Liver shows low attenuation likely due to fatty infiltration. The gallbladder is unremarkab le. PANCREAS: No significant abnormality is seen. SPLEEN: No significant abnormality is seen. ADRENALS: No significant abnormality is seen. KIDNEYS: Right-sided kidney stone at the mid pole measures 5 mm. At the mid to lower pole a second ca lcification present measuring 4 mm. There is no hydronephrosis bilaterally. No ureteral calcification s. REPRODUCTIVE ORGANS: No significant abnormality is seen. URINARY BLADDER: No significant abnormality is seen. BOWEL: Suspect some thickening of small bowel loops. The appendix is normal. FREE AIR: No Free Air is visible. ASCITES: None visible. PELVIC ADENOPATHY: None visualized. RETROPERITONEAL ADENOPATHY: No Retroperitoneal Adenopathy visible. OSSEOUS STRUCTURES: No significant abnormality is seen. IMPRESSION: CORRELATE FOR ENTERITIS. NONOBSTRUCTIVE RIGHT NEPHROLITHIASIS.
[2016-09-22] MEDS ORDERED: HYDROmorphone 1 MG/ML 1 ML SYRINGE IVP STA (18:29)
--- NOTE | 2016-09-22 19:37 | US ---
EXAMINATION TYPE: US transvaginal DATE OF EXAM: 09/22/2016 COMPARISON: US and CT in PACS, prior ultrasound 06/29/2016, CT 09/22/2016 CLINICAL HISTORY: Pelvic pain. TECHNIQUE: Transvaginal (TV) Date of LMP: 09/18/2016 EXAM MEASUREMENTS: Uterus: 6.9 x 3.5 x 4.3 cm Endometrial Stripe: 0.5 cm Right Ovary: 4.1 x 2.5 x 3.4 cm Left Ovary: 4.0 x 3.1 x 2.7 cm 1. Uterus: Anteverted stable appearance 2. Endometrium: wnl 3. Right Ovary: Multiple follicles visualized, wnl 4. Left Ovary: Multiple follicles visualized , wnl Spectral, color and waveform doppler imaging shows good arterial and venous flow within the ovaries ; there is no evidence for ovarian torsion. 5. Bilateral Adnexa: wnl 6. Posterior cul-de-sac: wnl IMPRESSION: No significant abnormalities evident
[2016-09-22 19:57] VITALS: BP 108/70; PULSE 78; RESP 16; TEMP 97.4
== END 2016-09-22 19:56 | disposition home or self-care (01) ==
LOC: EC 15:55
DX: R10.9 Unspecified abdominal pain (principal); R11.2 Nausea with vomiting, unspecified; Z87.442 Personal history of urinary calculi; Z87.440 Personal history of urinary (tract) infections; Z79.3 Long term (current) use of hormonal contraceptives; Z79.84 Long term (current) use of oral hypoglycemic drugs; Z79.899 Other long term (current) drug therapy
CPT/HCPCS: 99284; 96374; 96375; 96361 ×3; 36415; 80053; 82150; 83690; 85025; 81001; 81025; 74000; 93975; 76830; 74176; J2405; J1170

== ENCOUNTER 2016-10-02 02:10 | Emergency (ER) | payer MEDICAID ==
[2016-10-02 02:17] VITALS: RESP 18
[2016-10-02] MEDS ORDERED: HYDROmorphone 1 MG/ML 1 ML SYRINGE IVP STA (02:29)
[2016-10-02] MEDS ORDERED: KETOROLAC 30 MG/ML 1 ML VIAL IVP STA (02:29)
[2016-10-02] MEDS ORDERED: ONDANSETRON 4 MG/2 ML VIAL IVP STA (02:29)
[2016-10-02] MEDS: SODIUM CHLORIDE 0.9% 500 ML IV STA ×2 (02:38→03:26)
[2016-10-02 02:43] LABS: Basophils # (A) 0.1 k/uL (0-0.2); Basophils % (A) 1 %; CH 28.3; CHCM 33.4; Eosinophils # (A) 0.1 k/uL (0-0.7); Eosinophils % (A) 1 %; HDW 2.61; HGB 12.5 gm/dL (11.4-16.0); Luc # (Auto) 0.12; Luc % (Auto) 1; Lymphocytes % (A) 17 %; MCH 27.4 pg (25.0-35.0); MCHC 32.2 g/dL (31.0-37.0); MCV 85.1 fL (80.0-100.0); Mean Platelet Volume 7.6; Monocytes # (A) 0.5 k/uL (0-1.0); Monocytes % (A) 4 %; Neutrophils # (A) 8.6 k/uL (1.3-7.7); Neutrophils % (A) 76 %; RBC 4.58 m/uL (3.80-5.40); RDW 12.9 % (11.5-15.5); WBC 11.4 k/uL (3.8-10.6); WBC (Perox) 12.19
[2016-10-02 02:53] LABS: ALT 31 U/L (9-52); AST 30 U/L (14-36); Alkaline Phosphatase 61 U/L (38-126); Anion Gap 13 mmol/L; Blood Urea Nitrogen 15 mg/dL (7-17); Calcium 9.9 mg/dL (8.4-10.2); Carbon Dioxide 21 mmol/L (22-30); Chloride 106 mmol/L (98-107); Glucose 117 mg/dL (74-99); Non-African American GFR(MDRD) >60 (>60 ml/min/1.73 sqM); Potassium 4.7 mmol/L (3.5-5.1); Sodium 140 mmol/L (137-145); Total Bilirubin 0.3 mg/dL (0.2-1.3); Total Protein 8.2 g/dL (6.3-8.2)
--- NOTE | 2016-10-02 03:46 | ED ---
Abdominal Pain HPI - General Chief Complaint: Abdominal Pain Stated Complaint: kidney pain Time Seen by Provider: 10/02/16 02:24 Source: patient Mode of arrival: ambulatory Limitations: no limitations - History of Present Illness Initial Comments: 25-year-old female patient presents to the emergency department today with complaints of right flank pain 1 week. Patient states that the pain does subside for a day or so, but returned today was worse than before. Patient states with this she is having nausea. She describes the pain as sharp and stabbing, she states pain radiates to her abdomen. Patient states she was seen here a week ago and did have a CT of the abdomen and pelvis which did show nonobstructing renal stones on the right side. Patient denies any fever, chills , constipation, diarrhea, chest pain, shortness of breath, dizziness, or weakness. Patient denies any hematuria, dysuria, urinary urgency or urinary frequency. She states that her urine has been darker than usual today. - Related Data Home Medications Medication Instructions Recorded Confirmed Dicyclomine [Bentyl] 10 mg PO TID PRN 09/22/16 09/22/16 Medroxyprogesterone Acetate 10 mg PO DIRECTED 09/22/16 09/22/16 [Provera] Naproxen Sodium [Midol] 220 mg PO Q12HR PRN 09/22/16 09/22/16 metFORMIN HCL [Glucophage] 500 mg PO TID 09/22/16 09/22/16 Previous Rx's Medication Instructions Recorded Ibuprofen [Motrin] 600 mg PO Q6HR PRN #40 day 09/22/16 Ondansetron Odt [Zofran ODT] 4 mg PO Q8HR PRN #20 tab 09/22/16 Tamsulosin HCl [Flomax] 0.4 mg PO DAILY #7 cap 10/02/16 Allergies Allergy/AdvReac Type Severity Reaction Status Date / Time No Known Allergies Allergy Verified 10/02/16 02:17 Review of Systems ROS Statement: Those systems with pertinent positive or pertinent negative responses have been documented in the HPI. ROS Other: All systems not noted in ROS Statement are negative. Past Medical History Additional Past Medical History / Comment(s): UTIs, back pain, colitis, kindey stones History of Any Multi-Drug Resistant Organisms: None Reported Past Surgical History: No Surgical Hx Reported Past Psychological History: No Psychological Hx Reported Smoking Status: Never smoker Past Alcohol Use History: Occasional Past Drug Use History: None Reported General Exam Limitations: no limitations General appearance: alert, in distress (In moderate distress) Eye exam: Present: normal appearance, PERRL, EOMI. Absent: scleral icterus, conjunctival injection, periorbital swelling ENT exam: Present: normal exam, mucous membranes moist Neck exam: Present: normal inspection. Absent: tenderness, meningismus, lymphadenopathy Respiratory exam: Present: normal lung sounds bilaterally. Absent: respiratory distress, wheezes, rales, rhonchi, stridor Cardiovascular Exam: Present: regular rate, normal rhythm, normal heart sounds. Absent: systolic murmur, diastolic murmur, rubs, gallop, clicks GI/Abdominal exam: Present: soft, normal bowel sounds. Absent: distended, tenderness, guarding, rebound, rigid Extremities exam: Present: normal inspection, full ROM, normal capillary refill. Absent: tenderness, pedal edema, joint swelling, calf tenderness Back exam: Present: normal inspection, CVA tenderness (R). Absent: CVA tenderness (L) Neurological exam: Present: alert, oriented X3, CN II-XII intact Psychiatric exam: Present: normal affect, normal mood Skin exam: Present: warm, dry, intact, normal color. Absent: rash Course Vital Signs 10/02/16 02:15 Temperature 98.3 F Pulse Rate 66 Respiratory 18 Rate Blood Pressure 145/74 O2 Sat by Pulse 98 Oximetry Medical Decision Making - Medical Decision Making 25-year-old female patient presented to emergency department today for evaluation of right flank pain. Patient states that she has been having abdominal pain and flank pain on and off for the last week. Patient was seen here a week ago did have a CT of the abdomen and pelvis which showed no abnormalities other than some nonobstructing renal stones on the right side. Lab work was performed here today was unremarkable. KUB x-ray was performed and showed an overall nonobjective bowel gas pattern. Patient symptoms are consistent with kidney stone so patient will be discharged home to continue her ibuprofen and Zofran for symptom control. Patient will also be started on a 7 day course of Flomax. Patient instructed to follow-up with urology. Patient instructed to follow-up with her primary care physician in one to 2 days for recheck. Patient instructed to return for any new, worsening, or concerning symptoms. Patient verbalizes understanding and agrees this plan. - Lab Data Result diagrams: 10/02/16 02:30 10/02/16 02:30 Lab Results 10/02/16 10/02/16 10/02/16 Range/Units 02:30 02:30 02:30 WBC 11.4 H (3.8-10.6) k/uL RBC 4.58 (3.80-5.40) m/uL Hgb 12.5 (11.4-16.0) gm/dL Hct 39.0 (34.0-46.0) % MCV 85.1 (80.0-100.0) fL MCH 27.4 (25.0-35.0) pg MCHC 32.2 (31.0-37.0) g/dL RDW 12.9 (11.5-15.5) % Plt Count 331 (150-450) k/uL Neutrophils % 76 % Lymphocytes % 17 % Monocytes % 4 % Eosinophils % 1 % Basophils % 1 % Neutrophils # 8.6 H (1.3-7.7) k/uL Lymphocytes # 2.0 (1.0-4.8) k/uL Monocytes # 0.5 (0-1.0) k/uL Eosinophils # 0.1 (0-0.7) k/uL Basophils # 0.1 (0-0.2) k/uL Sodium 140 (137-145) mmol/L Potassium 4.7 (3.5-5.1) mmol/L Chloride 106 (98-107) mmol/L Carbon Dioxide 21 L (22-30) mmol/L Anion Gap 13 mmol/L BUN 15 (7-17) mg/dL Creatinine 0.70 (0.52-1.04) mg/dL Est GFR (MDRD) Af Amer >60 (>60 ml/min/1.73 sqM) Est GFR (MDRD) Non-Af >60 (>60 ml/min/1.73 sqM) Glucose 117 H (74-99) mg/dL Calcium 9.9 (8.4-10.2) mg/dL Total Bilirubin 0.3 (0.2-1.3) mg/dL AST 30 (14-36) U/L ALT 31 (9-52) U/L Alkaline Phosphatase 61 (38-126) U/L Total Protein 8.2 (6.3-8.2) g/dL Albumin 4.9 (3.5-5.0) g/dL HCG, Qual Not Detected - Radiology Data Radiology results: report reviewed, image reviewed Two-view x-ray of the abdomen was obtained and shows nonobstructive bowel gas pattern. No subdiaphragmatic free air. Dictated by Dr. Lyons. Disposition Clinical Impression: Kidney stone Disposition: HOME SELF-CARE Condition: Good Instructions: Kidney Stones (ED), Flank Pain (ED) Additional Instructions: Increase fluids. Take ibuprofen and Zofran for symptom control. Follow up with urologist. Follow-up with primary care physician in one to 2 days. Return for any new, worsening, or concerning symptoms. Prescriptions: Tamsulosin HCl [Flomax] 0.4 mg PO DAILY #7 cap Referrals: Maria Esther Bridges MD [Primary Care Provider] - 1-2 days Walker Madrid MD [STAFF PHYSICIAN] - 1-2 days Time of Disposition: 05:11
--- NOTE | 2016-10-02 05:10 | XR ---
EXAM: XR Kub CLINICAL HISTORY: Reason: Pain TECHNIQUE: X-ray kub. COMPARISON: 09/22/16 FINDINGS/IMPRESSION: Upright views of the abdomen. Nonobstructive bowel gas pattern. No subdiaphragmatic free air.
[2016-10-02 05:33] VITALS: BP 105/62; PULSE 83; TEMP 97.2
== END 2016-10-02 05:25 | disposition home or self-care (01) ==
LOC: EC 02:10
DX: N20.0 Calculus of kidney (principal); Z87.442 Personal history of urinary calculi; Z79.84 Long term (current) use of oral hypoglycemic drugs; Z79.899 Other long term (current) drug therapy
CPT/HCPCS: 99284; 96374; 96375 ×2; 36415; 80053; 85025; 84703; 74000; 96361 ×3; J2405; J1885; J1170

== ENCOUNTER → 2016-10-12 | Outpatient (CLI) | payer MEDICAID | END | disposition home or self-care (01) | LOC: LABPAT 12:52 | PROVIDERS: ATTEND Urology | DX: Z01.812 Encounter for preprocedural laboratory examination (principal); N20.0 Calculus of kidney | CPT/HCPCS: 36415; 84132 ==

== ENCOUNTER 2016-10-13 09:08 | Day surgery (SDC) | payer MEDICAID ==
[2016-10-12 10:56] VITALS: BMI 37.0
[~2016-10-13 09:08] MED LIST changes: +CLINDAMYCIN 600 MG in DEXTROSE 5% IN WATER 50 ML IVPB ONE; +DEXAMETHASONE SOD PHOSPHATE 10 MG/ML 1 ML VIAL IV ONE; +HYDROmorphone 1 MG/ML 1 ML SYRINGE IVP PRN; +MIDAZOLAM 2 MG/2 ML VIAL IV PRN; +ONDANSETRON 4 MG/2 ML VIAL IVP ONE
--- NOTE | 2016-10-13 09:08 | XR ---
EXAMINATION TYPE: XR KUB DATE OF EXAM: 10/13/2016 CLINICAL DATA: 25-year-old female with presurgical evaluation for right-sided kidney stones., [facility] COMPARISON: 10/02/2016 FINDINGS: Nonobstructive bowel gas pattern. Mild to moderate scattered stool. 3 mm density projecting at the upper pole right kidney could represent a nonobstructing calculus. No definite additional suspicious calcifications. IMPRESSION: Possible 3 mm right upper pole renal calculus.
[2016-10-13 10:03] LABS: Glucose,Whole Blood 109 mg/dL (75-99)
[2016-10-13] MEDS ORDERED: LIDOCAINE 1% 20 ML VIAL (10MG/ML) FOR IV START INTRADERMA ONE (10:04)
[2016-10-13] MEDS ORDERED: MIDAZOLAM 2 MG/2 ML VIAL ONE (10:36)
[2016-10-13] MEDS ORDERED: PROPOFOL 10 MG/ML 20 ML VIAL IV ONE (10:36)
[2016-10-13] MEDS ORDERED: KETOROLAC 30 MG/ML 1 ML VIAL ONE (10:36)
[2016-10-13] MEDS ORDERED: fentaNYL (PF) 50 MCG/ML 2 ML AMP ONE (10:36)
[2016-10-13 11:43] VITALS: TEMP 97
--- NOTE | 2016-10-13 11:57 | FL ---
EXAMINATION TYPE: FL guidance operating room DATE OF EXAM: 10/13/2016 FLUOROSCOPY Fluoroscopy time of 7 seconds was used during right-sided lithotripsy with C-arm assistance. One imag e document/s the procedure.
--- NOTE | 2016-10-13 11:57 | P.OP ---
Date of Procedure: 10/13/16 Preoperative Diagnosis: Right Renal Calculi Postoperative Diagnosis: Same Procedure(s) Performed: Cystoscopy, right ureteroscopy with Holmium laser lithotripsy, right ureteral stent insertion Implants: Anesthesia: WILLIAMA Surgeon: Walker Madrid Estimated Blood Loss (ml): 0 IV fluids (ml): 500 Pathology: none sent Condition: stable Disposition: PACU Indications for Procedure: She is a 25 year old female with a one week history of nausea, vomiting and right flank pain. She went to the ER twice, and two KUB's did not show stones. She had a CT on 09/22/2016 showing a 5 mm calculus in the midpole of the right kidney, and a 4 mm lower pole right renal calculus. There was no obstruction. Her urine was normal today. She has been vomiting several times a day, so she will be taken off work until after her surgery 10/13/2016. She will be scheduled for cystoscopy, right ureteroscopy, laser lithotripsy and stone basketing of both stones, with right stent placement. She will return two weeks later for cystoscopy and stent removal in the office. Operative Findings: Inflamed right ureteral orifice, likely due to recently passed right ureteral calculus. 2 right renal calculi, fragmented completely. Description of Procedure: The patient was taken to the operating room and placed in the dorsolithotomy position, with legs supported in Rey stirrups. The external genitalia was prepped and draped sterilely. The 30 lens was used to introduce the 19-Polish Stortz cystoscopic sheath through the urethra and into the bladder under direct vision. The bladder was examined in its entirety. The left ureteral orifice was of normal anatomic location and configuration, and clear urine effluxed from it. No tumors or foreign bodies were seen. The right ureteral orifice was edematous. The cystoscope was removed, the ACMI semirigid ureteroscope was advanced into the bladder, and the right ureteral orifice was cannulated. The ureteroscope was slowly advanced up to the ureteropelvic junction. No ureteral calculi were seen. A 0.038 inch Glidewire was passed through the ureteroscope and advanced into the right renal pelvis. The ureteroscope was removed, and an 11/13-Polish ureteral access catheter was passed over the wire, up to the proximal ureter. The Olympus flexible ureteroscope was passed through the ureteral access catheter sheath and into the right renal pelvis. A several mm calculus was identified within an upper pole calyx. The 200 micron Holmium laser probe was passed through the ureteroscope, and lithotripsy was performed. The calculus was not dense and fragmented readily. Lithotripsy was continued until all calculus fragments were smaller than the size of the laser tip. Each calyx was then examined. A very small calculus was identified within a lower pole calyx. This was fragmented. The ureteroscope was removed. The Glidewire was passed through the ureteral access catheter sheath, which was then removed. The Glidewire was backloaded into the cystoscope, which was passed into the bladder. A 24 cm, 4.8-Polish double-J ureteral stent was placed over the wire. Proper stent positioning was verified fluoroscopically and endoscopically. The bladder was emptied and the cystoscope was carefully removed. The string attached to the stent was taped to the patient's right thigh. The patient tolerated the procedure well and was taken to the recovery room in stable condition.
[2016-10-13 14:28] VITALS: BP 113/62; PULSE 76; RESP 16
== END 2016-10-13 14:52 | disposition home or self-care (01) ==
LOC: OR 09:08
PROVIDERS: ATTEND Urology
DX: N20.0 Calculus of kidney (principal); K52.9 Noninfective gastroenteritis and colitis, unspecified; Z79.84 Long term (current) use of oral hypoglycemic drugs
CPT/HCPCS: 81025; 84132; 74000; 52356; C2625; C1769; C1894; J2250; J1100; J2405; J3010; J1885; J2704

== ENCOUNTER 2017-04-14 22:44 | Emergency (ER) | payer MEDICAID, OTHER ==
[2017-04-14 23:12] VITALS: RESP 18
--- NOTE | 2017-04-14 23:44 | XR ---
EXAMINATION TYPE: XR knee complete LT DATE OF EXAM: 04/14/2017 COMPARISON: NONE HISTORY: Knee pain TECHNIQUE: 3 views FINDINGS: I see no fracture nor dislocation. Joint spaces are normal. There is no sign of knee joint effusion. IMPRESSION: Negative left knee exam
--- NOTE | 2017-04-15 00:01 | ED ---
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 She states that she is not certain what the exact mechanism was, but under more detailed questioning believes it may have been mild hyperextension. The patient did not have an impact to the knee area she did not have a fall. Patient denies weakness or numbness of the extremity. The pain is dull, mild unless she is bearing weight or flexing the knee in which case it is moderate. She indicates the pain is on the posterior aspect of the knee. MD Complaint: knee injury -: hour(s) Injury: Knee: Left Place: work Severity: moderate Improves With: nothing Worsens With: other (Walking) Associated Symptoms: able to partially bear weight, ambulatory - Related Data Home Medications Medication Instructions Recorded Confirmed Ibuprofen [Motrin Ib] 400 mg PO Q6H PRN 04/14/17 04/14/17 Previous Rx's Medication Instructions Recorded Ibuprofen [Motrin] 600 mg PO Q8HR PRN #20 tab 04/15/17 Allergies Allergy/AdvReac Type Severity Reaction Status Date / Time No Known Allergies Allergy Verified 04/14/17 23:16 Review of Systems ROS Statement: Those systems with pertinent positive or pertinent negative responses have been documented in the HPI. ROS Other: All systems not noted in ROS Statement are negative. Constitutional: Denies: weakness Musculoskeletal: Reports: as per HPI, arthralgia. Denies: back pain, joint swelling Skin: Denies: rash Neurological: Denies: weakness, numbness, paresthesias Past Medical History Additional Past Medical History / Comment(s): UTIs, back pain, colitis, kindey stones. NOT DIABETIC-TAKES METFORMIN WITH PROVERA TO HELP WITH CONCEIVING History of Any Multi-Drug Resistant Organisms: None Reported Past Surgical History: No Surgical Hx Reported Additional Past Surgical History / Comment(s): COLONOSCOPY AND EGD 07/04/16 Past Anesthesia/Blood Transfusion Reactions: No Reported Reaction Past Psychological History: No Psychological Hx Reported Smoking Status: Never smoker Past Alcohol Use History: Occasional Past Drug Use History: None Reported - Past Family History Mother Family Medical History: Deep Vein Thrombosis (DVT) General Exam Limitations: no limitations General appearance: alert, in no apparent distress Left Hip exam: Present: full ROM Upper Leg exam: Present: normal inspection, full ROM. Absent: tenderness, swelling Knee exam: Present: normal inspection, tenderness (Left popliteal fossa), full knee extension. Absent: full ROM, swelling, abrasion, laceration, ecchymosis, deformity, dislocation, erythema, effusion, posterior draw sign, pain/laxity with valgus, pain/laxity with varus Lower Leg exam: Present: normal inspection, full ROM. Absent: tenderness, swelling, abrasion Ankle exam: Present: normal inspection, full ROM. Absent: tenderness, swelling Foot/Toe exam: Present: normal inspection, full ROM. Absent: tenderness, swelling Neurovascular tendon exam: Present: no vascular compromise Course Vital Signs 04/14/17 04/15/17 23:10 00:10 Temperature 98.2 F 97 F L Pulse Rate 84 77 Respiratory 18 18 Rate Blood Pressure 125/66 129/79 O2 Sat by Pulse 100 97 Oximetry Medical Decision Making - Medical Decision Making Patient is 26-year-old woman with left knee injury, suspect mild hyper extension. Discussed appropriate follow-up and as well as that, they return parameters. All questions answered. Disposition Clinical Impression: Left knee sprain Disposition: HOME SELF-CARE Condition: Good Instructions: Knee Sprain (ED) Prescriptions: Ibuprofen [Motrin] 600 mg PO Q8HR PRN #20 tab PRN Reason: Pain Referrals: Maria Esther Bridges MD [Primary Care Provider] - 1-2 days
[2017-04-15 00:15] VITALS: BP 129/79; PULSE 77; TEMP 97
== END 2017-04-15 00:28 | disposition home or self-care (01) ==
LOC: EC 22:44
DX: S83.92XA Sprain of unspecified site of left knee, initial encounter (principal); X50.0XXA Overexertion from strenuous movement or load, initial encounter; Y93.89 Activity, other specified; Y92.69 Other specified industrial and construction area as the place of occurrence of the external cause; Y99.0 Civilian activity done for income or pay
CPT/HCPCS: 99283

== ENCOUNTER → 2017-04-18 | Outpatient (CLI) | payer OTHER ==
--- NOTE | 2017-04-18 13:41 | XR ---
EXAMINATION TYPE: XR lumbar spine 3V DATE OF EXAM: 04/18/2017 COMPARISON: 10/17/2011 HISTORY: 26-year-old female with low back pain, lifting injury 5 days ago TECHNIQUE: 3 views FINDINGS: Leftward truncal shift is noted, new from 2011. 5 lumbar type vertebral bodies. Vertebral body height s are maintained. There is mild to moderate disc space narrowing at L5-S1. Alignment is maintained. IMPRESSION: 1. Moderate degenerative disc disease at L5-S1. 2. Leftward truncal shift may be positional or due to muscle spasm.
== END | disposition home or self-care (01) ==
LOC: RADXRMAIN 12:34
PROVIDERS: ATTEND Emergency Medicine
DX: M51.37 Other intervertebral disc degeneration, lumbosacral region (principal); Z87.39 Personal history of other diseases of the musculoskeletal system and connective tissue
CPT/HCPCS: 72100

== ENCOUNTER 2018-02-14 16:26 | Emergency (ER) | payer OTHER, MEDICAID ==
[2018-02-14 16:49] VITALS: RESP 16; TEMP 98.3
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
--- NOTE | 2018-02-14 18:33 | XR ---
EXAMINATION TYPE: XR ankle complete RT DATE OF EXAM: 02/14/2018 COMPARISON: NONE HISTORY: Ankle pain TECHNIQUE: 3 views FINDINGS: Ankle mortise is anatomic. I see no fracture nor dislocation. Joint spaces are fairly juliet l. IMPRESSION: Negative right ankle exam.
--- NOTE | 2018-02-14 18:34 | XR ---
EXAMINATION TYPE: XR tibia fibula RT DATE OF EXAM: 02/14/2018 COMPARISON: NONE HISTORY: Leg pain TECHNIQUE: 4 views FINDINGS: Tibia and fibula appear intact. I see no fracture nor dislocation. Knee joint and ankle bob nt appear intact. IMPRESSION: Negative right tibia and fibula exam. No fracture seen.
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
[2018-02-14 21:16] VITALS: BP 127/64; PULSE 72
== END 2018-02-14 21:15 | disposition home or self-care (01) ==
LOC: EC 16:26
DX: M54.2 Cervicalgia (principal); M79.661 Pain in right lower leg; M25.571 Pain in right ankle and joints of right foot; V43.62XA Car passenger injured in collision with other type car in traffic accident, initial encounter; Y92.410 Unspecified street and highway as the place of occurrence of the external cause
CPT/HCPCS: 72125; 81025; 99284

== ENCOUNTER 2018-04-28 21:12 | Emergency (ER) | payer BC, MEDICAID ==
[2018-04-28] MEDS ORDERED: IBUPROFEN 600 MG TAB PO STA (21:42)
[2018-04-28] MEDS ORDERED: SODIUM CHLORIDE 0.9% 500 ML 500 ML IV SCH (21:45)
[2018-04-28 22:01] LABS: Appearance,Urine Clear (Clear); Bilirubin,Urine 1+ (Negative); Blood,Urine Trace (Negative); Color,Urine Dark Orange; Glucose,Urine (UA) Negative (Negative); Ketones,Urine Negative (Negative); Leukocyte Esterase,Urine Negative (Negative); Mucus,Urine Occasional /hpf; Nitrite,Urine Positive (Negative); PH, Urine 6.5 (5.0-8.0); Protein,Urine Trace (Negative); RBC,Urine 20 /hpf (0-5); Squamous Epithelial Cell,Urine 1 /hpf (0-4)
[2018-04-28] MEDS ORDERED: CEPHALEXIN 500MG STARTER PACK 4 CAP BTL PO STA (22:07)
--- NOTE | 2018-04-28 22:11 | ED ---
Female Urogenital HPI - General Chief complaint: Urogenital Stated complaint: Female Source: patient, family Mode of arrival: ambulatory Limitations: no limitations - History of Present Illness Initial comments: Darrell is a previously healthy 27-year-old female who presents to the emergency department today for evaluation of dysuria. Patient reports she began experiencing dysuria or urinary frequency on Monday of this week she's been trying to treat at home taking [id number] Azo-Standard and drinking plenty of fluids. Despite that she continues to have Tums which prompted her come to the emergency department for evaluation of possible urinary tract infection. Patient reports she's had urinary tract infections in the past but none for a number of years. She's not been on any antibiotics recently. She reports she is in a monogamous relationship with no concern for sexual transmitted infections. She does have a history of polycystic ovarian disease and does have very irregular periods she reports there is a possibility she could be . - Related Data Home Medications Medication Instructions Recorded Confirmed Aspirin/Acetaminophen/Caffeine 2 tab PO Q12H PRN 04/28/18 04/28/18 [Excedrin Migraine Caplet] Cranberry Fruit Concentrate [Azo 250 mg PO DAILY 04/28/18 04/28/18 Cranberry] Previous Rx's Medication Instructions Recorded Cephalexin [Keflex] 500 mg PO Q12HR #10 cap 04/28/18 Cephalexin [Keflex] 500 mg PO Q12HR #10 cap 04/28/18 Allergies Allergy/AdvReac Type Severity Reaction Status Date / Time No Known Allergies Allergy Verified 04/28/18 21:35 Review of Systems ROS Statement: Those systems with pertinent positive or pertinent negative responses have been documented in the HPI. ROS Other: All systems not noted in ROS Statement are negative. Past Medical History Additional Past Medical History / Comment(s): UTIs, back pain, colitis, kindey stones. NOT DIABETIC-TAKES METFORMIN WITH PROVERA TO HELP WITH CONCEIVING History of Any Multi-Drug Resistant Organisms: None Reported Past Surgical History: No Surgical Hx Reported Additional Past Surgical History / Comment(s): COLONOSCOPY AND EGD 07/04/16 Past Anesthesia/Blood Transfusion Reactions: No Reported Reaction Past Psychological History: No Psychological Hx Reported Smoking Status: Never smoker Past Alcohol Use History: Occasional Past Drug Use History: None Reported - Past Family History Mother Family Medical History: Deep Vein Thrombosis (DVT) General Exam - General Exam Comments Initial Comments: Physical Exam GENERAL: Patient is well-developed and well-nourished. Patient is nontoxic and well- hydrated and is in no distress. HENT: Normocephalic, Atraumatic. EYES: PERRL, EOMI PULMONARY: Unlabored respirations. No audible rales rhonchi or wheezing was noted. CARDIOVASCULAR: There is a regular rate and rhythm without any murmurs gallops or rubs. ABDOMEN: Mild suprapubic tenderness No flank pain SKIN: Skin is clear with no lesions or rashes and otherwise unremarkable. : Deferred NEUROLOGIC: Patient is alert and oriented x3. Moving all extremities spontaneously MUSCULOSKELETAL: Normal extremities with adequate strength and full range of motion. No lower extremity swelling or edema. No calf tenderness. PSYCHIATRIC: Normal psychiatric evaluation. Limitations: no limitations Limitations: no limitations Course Vital Signs 04/28/18 21:13 Temperature 98.4 F Pulse Rate 96 Respiratory 20 Rate Blood Pressure 146/85 O2 Sat by Pulse 100 Oximetry Medical Decision Making - Medical Decision Making Patient was seen and evaluated history is obtained from the patient Patient was able to provide a urine sample though she is taking Azo-Standard therefore there may be some abnormal results to that the discoloration We'll plan to treat for symptomatic dysuria patient has no concern for sexual transmitted infection she has no history of sexually transmitted infections and is in a monogamous relationship currently trying to conceive Urine is suggestive of urinary tract infection with nitrite and blood positive will treat with Keflex HCG negative Patient was updated on findings. Advised patient to continue supportive care with oral rehydration therapy, Azo when necessary for discomfort and antibiotics. All questions pertaining care were answered return parameters were discussed patient discharged home in stable condition. - Lab Data Lab Results 04/28/18 04/28/18 Range/Units 21:29 21:29 Urine Color Dark [place] Urine Appearance Clear (Clear) Urine pH 6.5 (5.0-8.0) Ur Specific [place] 1.020 (1.001-1.035) Urine Protein Trace H (Negative) Urine Glucose (UA) Negative (Negative) Urine Ketones Negative (Negative) Urine Blood Trace H (Negative) Urine Nitrite Positive H (Negative) Urine Bilirubin 1+ H (Negative) Urine Urobilinogen 3.0 (<2.0) mg/dL Ur Leukocyte Esterase Negative (Negative) Urine RBC 20 H (0-5) /hpf Urine WBC 4 (0-5) /hpf Ur Squamous Epith Cells 1 (0-4) /hpf Urine Mucus Occasional H (None) /hpf Urine HCG, Qual Not Detected (Not Detectd) Disposition Clinical Impression: Urinary tract infection Disposition: HOME SELF-CARE Instructions (If sedation given, give patient instructions): Urinary Tract Infection in Women (ED) Prescriptions: Cephalexin [Keflex] 500 mg PO Q12HR #10 cap Cephalexin [Keflex] 500 mg PO Q12HR #10 cap Is patient prescribed a controlled substance at d/c from ED?: No Referrals: Maria Esther Bridges MD [Primary Care Provider] - 1-2 days
[2018-04-28 22:29] VITALS: BP 132/84; PULSE 92; RESP 18; TEMP 99.3
== END 2018-04-28 22:28 | disposition home or self-care (01) ==
LOC: EC 21:12
DX: N39.0 Urinary tract infection, site not specified (principal)
CPT/HCPCS: 81001; 81025; 99283

== ENCOUNTER 2021-02-04 07:45 | Emergency (ER) | payer BC ==
[2021-02-04 07:53] VITALS: RESP 18; TEMP 98.1
[2021-02-04] MEDS ORDERED: ORPHENADRINE 30 MG/ML 2 ML VIAL IM STA (08:06)
[2021-02-04] MEDS ORDERED: KETOROLAC 15 MG/ML 1 ML VIAL IM STA (08:06)
--- NOTE | 2021-02-04 08:50 | ED ---
Back Pain HPI - General Chief Complaint: Back Pain/Injury Stated Complaint: Back pain Time Seen by Provider: 02/04/21 07:58 Source: patient, EMS, RN notes reviewed - History of Present Illness Initial Comments: Patient is a 30-year-old female that presents to the emergency department complaining of left middle back pain. She notes she was recently diagnosed with pleurisy cough couple times this morning felt a pop in her back and then had pain. Patient denied any radiation to her lower extremities. She denied any saddle anesthesia. She denied any bladder or bowel incontinence or retention. She did appear to be moderately uncomfortable while laying in bed. She denied chest pain shortness breath headache nausea vomiting diarrhea constipation fever fatigue chills. - Related Data Home Medications Medication Instructions Recorded Confirmed Medroxyprogesterone Acetate 5 mg PO DAILY 02/04/21 02/04/21 [Provera] Naproxen 500 mg PO Q12H PRN 02/04/21 02/04/21 clomiPHENE CITRATE 50 mg PO DIRECTED 02/04/21 02/04/21 methylPREDNISolone [Medrol Dose See Taper PO DAILY 02/04/21 02/04/21 Pack] Previous Rx's Medication Instructions Recorded Cyclobenzaprine HCl 10 mg PO TID 10 Days #30 tab 02/04/21 Allergies Allergy/AdvReac Type Severity Reaction Status Date / Time cephalexin [From Keflex] Allergy Rash/Hives Verified 02/04/21 08:36 Review of Systems ROS Statement: Those systems with pertinent positive or pertinent negative responses have been documented in the HPI. ROS Other: All systems not noted in ROS Statement are negative. Past Medical History Additional Past Medical History / Comment(s): UTIs, back pain, colitis, kindey stones. NOT DIABETIC-TAKES METFORMIN WITH PROVERA TO HELP WITH CONCEIVING History of Any Multi-Drug Resistant Organisms: None Reported Past Surgical History: No Surgical Hx Reported Additional Past Surgical History / Comment(s): COLONOSCOPY AND EGD 07/04/16 Past Anesthesia/Blood Transfusion Reactions: No Reported Reaction Past Psychological History: No Psychological Hx Reported Smoking Status: Never smoker Past Alcohol Use History: Occasional Past Drug Use History: None Reported - Past Family History Mother Family Medical History: Deep Vein Thrombosis (DVT) General Exam General appearance: alert, in no apparent distress, obese Head exam: Present: atraumatic, normocephalic, normal inspection Eye exam: Present: normal appearance, PERRL, EOMI. Absent: scleral icterus, conjunctival injection, periorbital swelling ENT exam: Present: normal exam, mucous membranes moist Neck exam: Present: normal inspection Respiratory exam: Present: normal lung sounds bilaterally. Absent: respiratory distress, wheezes, rales, rhonchi, stridor Cardiovascular Exam: Present: regular rate, normal rhythm, normal heart sounds. Absent: systolic murmur, diastolic murmur, rubs, gallop, clicks GI/Abdominal exam: Present: soft, normal bowel sounds. Absent: distended, tend erness, guarding, rebound, rigid Extremities exam: Present: normal inspection, full ROM, normal capillary refill. Absent: tenderness, pedal edema, joint swelling, calf tenderness Back exam: Present: normal inspection, paraspinal tenderness (Left mid back) Neurological exam: Present: alert, oriented X3 Psychiatric exam: Present: normal affect, normal mood Skin exam: Present: warm, dry, intact, normal color. Absent: rash Course Vital Signs 02/04/21 07:48 Temperature 98.1 F Pulse Rate 81 Respiratory 18 Rate Blood Pressure 128/81 O2 Sat by Pulse 99 Oximetry Medical Decision Making - Medical Decision Making 30-year-old female complaining of left sided back pain after coughing and feeling a pop. Upon physical exam is mildly tender in her left mid back paraspinal muscles. 60 mg of Norflex and 15 mg of Toradol ordered. Muscle relaxer will be sent to pharmacy. Patient is agreeable with discharge home with follow up primary care. Case discussed with Dr. Brady. Disposition Clinical Impression: Mechanical back pain, Mid back pain Disposition: HOME SELF-CARE Condition: Stable Instructions (If sedation given, give patient instructions): Acute Low Back Pain (ED) Additional Instructions: Please return to the Emergency Department if symptoms worsen or any other concerns. Follow-up primary care in 1-2 days. Take muscle relaxers as prescribed. Prescriptions: Cyclobenzaprine HCl 10 mg PO TID 10 Days #30 tab Is patient prescribed a controlled substance at d/c from ED?: No Referrals: Jose M Franklin [Primary Care Provider] - 1-2 days Time of Disposition: 09:19
[2021-02-04 09:32] VITALS: BP 124/88; PULSE 84
== END 2021-02-04 09:32 | disposition home or self-care (01) ==
LOC: EC 07:45
DX: M54.6 Pain in thoracic spine (principal); X50.1XXA Overexertion from prolonged static or awkward postures, initial encounter; E66.9 Obesity, unspecified; Z68.41 Body mass index [BMI] 40.0-44.9, adult
CPT/HCPCS: 99283; 96372 ×2; J2360; J1885

== ENCOUNTER → 2023-06-14 | Outpatient (CLI) | payer BC ==
--- NOTE | 2023-06-23 10:12 | US ---
EXAMINATION TYPE: US bladder DATE OF EXAM: 06/14/2023 COMPARISON: EXAMINATION TYPE: US bladder DATE OF EXAM: 06/14/2023 COMPARISON: NONE CLINICAL INDICATION: Female, 32 years old with history of R33.9 RETENTION OF URINE; Diagnosed with e ndometrial cancer in january, full hysterectomy in February, not able to empty bladder/ forcefully em ptying bladder x1-2 months TECHNIQUE: Multiple sonographic images of the bladder are obtained. FINDINGS: EXAM MEASUREMENTS: Post Void Residual Volume: 8 mL HYPERION DEVELOPER NOTES: Color Doppler performed to assess ureteral jets. Bilateral Jets seen: Yes Normal Post Void Residual (less than 50ml): Yes IMPRESSION: Unremarkable exam.
== END | disposition home or self-care (01) ==
LOC: RADUSWWP 16:18
PROVIDERS: ATTEND Internal Medicine
DX: R33.9 Retention of urine, unspecified (principal); C54.1 Malignant neoplasm of endometrium; Z90.710 Acquired absence of both cervix and uterus
CPT/HCPCS: 76857

== ENCOUNTER → 2024-02-27 | Outpatient (CLI) | payer BC ==
--- NOTE | 2024-02-28 17:16 | XR ---
EXAMINATION TYPE: XR chest 2V DATE OF EXAM: 02/27/2024 11:38 AM COMPARISON: 01/26/2011 CLINICAL INDICATION: Female, 33 years old with history of R05.8 cough, x4 days TECHNIQUE: XR chest 2V view(s) obtained. FINDINGS: The heart size is normal. The pulmonary vasculature is normal. The lungs are clear. IMPRESSION: 1. No acute pulmonary process. [facility], Workstation: [email or web address], 02/28/2024 5:14 PM
== END | disposition home or self-care (01) ==
LOC: RADXRMAIN 11:22
PROVIDERS: ATTEND Internal Medicine
DX: R05.8 Other specified cough (principal)
CPT/HCPCS: 71046